=== PATIENT | female | born 1940 | race African-American/Black ===

== ENCOUNTER 2017-10-12 21:34 | Observation (INO) ==
[2017-10-12] MEDS ORDERED: Sodium Chlor 0.9% Inj 500 ML IV.SIG ONE (22:06)
--- NOTE | 2017-10-12 22:17 | ED ---
HPI General Chief complaint: Chest Pain Stated complaint: Chest pain Time Seen by Provider: 10/12/17 22:05 Source: patient Limitations: no limitations History of Present Illness HPI narrative: The patient is a 77 year old female who presents to the [facility] emergency department with a history of developing abdominal pain sitting and resting earlier this evening. She reports that she moved her bowels a few times with the onset of symptoms which seem to help with the abdominal pain, however then the pain moved up into her chest. She reports that the pain is in the midepigastric, lower chest area. She reports having associated shortness of breath. She reports that the pain is sharp in character. She reports that it is an 8 out of 10 in severity prior to arrival and then down to a 6 out of 10 in severity. She reports having associated nausea without vomiting. She reports having diaphoresis.On review of systems otherwise, the patient denies having any known recent fevers, cough, congestion, neck pain, diarrhea, urinary symptoms, or neurologic symptoms. Related Data Home Medications Medication Instructions Recorded Confirmed cholecalciferol (vitamin D3) 1,000 unit PO DAILY 10/13/17 10/13/17 [Vitamin D3] losartan 100 mg PO DAILY 10/13/17 10/13/17 multivitamin PO DAILY 10/13/17 oxybutynin chloride 5 mg DAILY 10/13/17 10/13/17 rosuvastatin 10 mg PO DAILY 10/13/17 10/13/17 Allergies Allergy/AdvReac Type Severity Reaction Status Date / Time No Known Allergies Allergy Verified 10/12/17 21:50 Review of Systems ROS Unobtainable All other systems reviewed negative except as stated in HPI [facility] Medical History Medical History Hypercholesteremia (Acute) Hypertension (Acute) Social History Social History Substance History: No History of Abuse Second Hand Smoke Exposure: No Smoking Status: Never smoker How Often Do You Have a Drink Containing Alcohol: Never Recent Travel in [facility] within the Last 8 Weeks: No Recent Out of Country Travel within the Last 8 Weeks: No Immunization History Tetanus Immunization: Unsure Hx Influenza Vaccine This Season: No Exam Const General: cooperative, no acute distress and well developed Nutritional Appearance: well nourished Orientation: alert, awake and oriented x3 HENMT Head: normocephalic and atraumatic Nose: no nasal discharge and no epistaxis Mouth: moist mucous membranes Eyes Sclera: normal sclerae Pupils: PERRL Neck Neck: trachea midline and no JVD Resp Effort & Inspection: no use of accessory muscles Auscultation: clear to auscultation bilaterally Cardio Rate: regular rate Rhythm: regular rhythm Heart Sounds: no murmurs GI Inspection: non-distended Palpation: soft, no hepatosplenomegaly and tender in the epigastrum; not in the LLQ, not in the RLQ, not in the LUQ, not in the RUQ, not at McBurney's point, Bernard's sign negative and with no rebound tenderness Auscultation: normal bowel sounds Skin General: dry skin (warm) Neuro General: alert, awake and oriented x3 Cranial Nerves: CN's II-XI intact bilaterally Speech: speech normal Motor: muscle tone normal throughout and no movement abnormalities noted Sensory Exam: no sensory deficits noted Extrem General: normal to inspection, no clubbing, no cyanosis and no edema Psych Mood: congruent mood Affect: normal affect Judgment: judgment good Course Initial Documented Vital Signs Temperature 99.4 F 10/12/17 21:46 Pulse Rate 90 10/12/17 21:46 Respiratory Rate 18 10/12/17 21:46 Blood Pressure 172/82 H 10/12/17 21:46 Pulse Oximetry 98 10/12/17 21:46 Last Documented Vital Signs Temperature 98.0 F 10/13/17 05:24 Pulse Rate 60 10/13/17 11:30 Respiratory Rate 18 10/13/17 11:30 Blood Pressure 127/60 10/13/17 11:30 Pulse Oximetry 98 10/13/17 11:30 Medical Decision Making MDM Narrative Medical decision making narrative: During the course of the patient's emergency department visit, the patient's history, examination, and differential diagnosis were reviewed with the patient. The patient was placed on a medical records manager with oximetry and frequent blood pressure monitoring. The patient had IV access obtained and blood work sent for analysis. The patient was initially provided Aspirin 324 mg p.o. 1, nitroglycerin sublingual 1, nitroglycerin 1 inch the chest wall, morphine 2 mg IV for pain, normal saline IV fluids. Laboratory studies revealed no acute abnormality except for a slightly elevated d-dimer, therefore CTA to rule out PE was ordered., initial set of cardiac enzymes were within normal limits, lipase within normal limits. Glucose was elevated at 186. Imaging studies revealed a CTA that was negative for pulmonary embolism, CT scan of the abdomen and pelvis showed no acute abnormality. The patient will be admitted to the chest pain center for rule out serial cardiac enzyme protocol followed by consideration of stress testing Differential Diagnosis Differential Diagnosis: Acute coronary syndrome, versus biliary colic, versus pancreatitis, versus acute cholecystitis Medical Records Medical records reviewed: Yes I reviewed the patient's medical records. Lab Data Lab results reviewed: Yes I reviewed the patient's lab results. Result diagrams: 10/12/17 20:35 10/12/17 20:35 Lab Results 10/12/17 10/12/17 10/12/17 Range/Units 20:35 20:35 20:35 WBC 8.8 (4.0-11.0) th/mm3 RBC 5.24 (4.00-5.30) mil/mm3 Hgb 12.1 (11.6-15.3) gm/dL Hct 37.3 (35.0-46.0) % MCV 71.2 L (80.0-100.0) fL MCH 23.1 L (27.0-34.0) pg MCHC 32.4 (32.0-36.0) % RDW 15.7 (11.6-17.2) % Plt Count 305 (150-450) th/mm3 MPV 8.4 (7.0-11.0) fL Neut % (Auto) 80.5 H (16.0-70.0) % Lymph % (Auto) 10.9 (9.0-44.0) % [place] % (Auto) 7.2 (0.0-8.0) % Eos % (Auto) 1.0 (0.0-4.0) % Baso % (Auto) 0.4 (0.0-2.0) % Neut # (Auto) 7.1 (1.8-7.7) th/mm3 Lymph # (Auto) 1.0 (1.0-4.8) th/mm3 [place] # (Auto) 0.6 (0.0-0.9) th/mm3 Eos # (Auto) 0.1 (0.0-0.4) th/mm3 Baso # (Auto) 0.0 (0.0-0.2) th/mm3 WBC Differential . Differential Comment Auto diff final PT 11.2 (9.8-11.6) sec INR 1.1 Ratio APTT 24.3 (24.3-30.1) sec D-Dimer Quant (PE/DVT) 0.81 H (0.00-0.50) mg/L FEU Sodium 145 (136-145) meq/L Potassium 3.8 (3.5-5.1) meq/L Chloride 108 H (98-107) meq/L Carbon Dioxide 26.3 (21.0-32.0) meq/L Anion Gap 11 (5-15) meq/L BUN 18 (7-18) mg/dL Creatinine 1.25 H (0.50-1.00) mg/dL Estimated GFR 51 L (>89) mL/min Random Glucose 186 H (74-106) mg/dL Calcium 8.7 (8.5-10.1) mg/dL Magnesium 1.9 (1.5-2.5) mg/dL Total Bilirubin 0.5 (0.2-1.0) mg/dL AST 71 H (15-37) U/L ALT 38 (10-53) U/L Alkaline Phosphatase 74 (45-117) U/L Total Creatine Kinase 140 (26-192) U/L CK-MB (CK-2) 0.8 (0.5-3.6) ng/mL Troponin I Less than 0.02 L (0.02-0.05) ng/mL Total Protein 7.1 (6.4-8.2) g/dL Albumin 4.1 (3.4-5.0) g/dL Lipase 82 (73-393) U/L 10/13/17 10/13/17 Range/Units 04:00 06:41 WBC (4.0-11.0) th/mm3 RBC (4.00-5.30) mil/mm3 Hgb (11.6-15.3) gm/dL Hct (35.0-46.0) % MCV (80.0-100.0) fL MCH (27.0-34.0) pg MCHC (32.0-36.0) % RDW (11.6-17.2) % Plt Count (150-450) th/mm3 MPV (7.0-11.0) fL Neut % (Auto) (16.0-70.0) % Lymph % (Auto) (9.0-44.0) % [place] % (Auto) (0.0-8.0) % Eos % (Auto) (0.0-4.0) % Baso % (Auto) (0.0-2.0) % Neut # (Auto) (1.8-7.7) th/mm3 Lymph # (Auto) (1.0-4.8) th/mm3 [place] # (Auto) (0.0-0.9) th/mm3 Eos # (Auto) (0.0-0.4) th/mm3 Baso # (Auto) (0.0-0.2) th/mm3 WBC Differential Differential Comment PT (9.8-11.6) sec INR Ratio APTT (24.3-30.1) sec D-Dimer Quant (PE/DVT) (0.00-0.50) mg/L FEU Sodium (136-145) meq/L Potassium (3.5-5.1) meq/L Chloride (98-107) meq/L Carbon Dioxide (21.0-32.0) meq/L Anion Gap (5-15) meq/L BUN (7-18) mg/dL Creatinine (0.50-1.00) mg/dL Estimated GFR (>89) mL/min Random Glucose (74-106) mg/dL Calcium (8.5-10.1) mg/dL Magnesium (1.5-2.5) mg/dL Total Bilirubin (0.2-1.0) mg/dL AST (15-37) U/L ALT (10-53) U/L Alkaline Phosphatase (45-117) U/L Total Creatine Kinase 128 121 (26-192) U/L CK-MB (CK-2) (0.5-3.6) ng/mL Troponin I Less than 0.02 L Less than 0.02 L (0.02-0.05) ng/mL Total Protein (6.4-8.2) g/dL Albumin (3.4-5.0) g/dL Lipase (73-393) U/L Imaging Data Radiologist's impression: Chest X-Ray 10/12/17 22:06 CONCLUSION: The lungs are clear. Abdomen/Pelvis CT 10/13/17 00:01 CONCLUSION: 1. No acute findings. Stable hepatic cysts and bilateral renal parapelvic cysts compared with 2016. No obstruction, free fluid or free air. Chest CTA 10/13/17 00:01 CONCLUSION: 1. Negative for pulmonary embolus. Stable 4 mm nodule left lower lobe. No acute findings. ECG Data Attestation: I personally reviewed and interpreted this ECG as follows: Interpretation: The patient had an EKG done on arrival that shows a sinus rhythm heart rate is 77, a [address] segment elevation. T waves are inverted in V1. Discharge Plan Discharge Disposition Patient Disposition: 01 Discharge Home Discharge Condition Condition: Stable Discharge Order Discharge Orders: Discharge Order (Routine); Ordered 10/13/17 Ordered By: El Richard Discharge Details Anticipated Discharge Date: 10/13/17 Physicians Team ED Provider: Tania Doyle Primary Care Provider: Nikole Dos Santos Attending Provider: Myron Dos Santos Status ED Status: Left Department Discharge Information Discharge Date/Time: 10/13/17 12:48
[2017-10-12] MEDS ORDERED: Morphine Sulfate Inj 2 MG/ML Vial IV.PUSH ONE (22:23)
[2017-10-12] MEDS ORDERED: Morphine Inj 4 MG/ML Vial IV.PUSH ONE (22:48)
--- NOTE | 2017-10-12 22:59 | XR ---
EXAM DATE: 10/12/2017 10:31 PM EDT AGE/SEX: 77 years / Female INDICATIONS: . Chest pain. CLINICAL DATA: This is the patient's initial encounter. Patient reports that signs and symptoms have been present for 1 day and indicates a pain score of 5/10. MEDICAL/SURGICAL HISTORY: . Renal calculi. Hypertension. Hysterectomy. COMPARISON: [facility] [place], 12/09[place]. . FINDINGS: A single AP view of the chest demonstrates the lungs to be symmetrically aerated without evidence of mass, infiltrate or effusion. Stable linear atelectasis left lower lung. The cardiomediastinal conto urs are unremarkable. Osseous structures are intact. CONCLUSION: The lungs are clear. Electronically signed by: Jose Brennan MD 10/12/2017 10:57 PM EDT
[2017-10-12 23:15] LABS: Baso % (Auto) 0.4 % (0.0-2.0); Eos # (Auto) 0.1 th/mm3 (0.0-0.4); Hematocrit 37.3 % (35.0-46.0); Hemoglobin 12.1 gm/dL (11.6-15.3); Lymph % (Auto) 10.9 % (9.0-44.0); Mean Corpuscular HGB Conc 32.4 % (32.0-36.0); Mean Corpuscular Hemoglobin 23.1 pg (27.0-34.0); Mean Corpuscular Volume 71.2 fL (80.0-100.0); Mean Platelet Volume 8.4 fL (7.0-11.0); Mono # (Auto) 0.6 th/mm3 (0.0-0.9); Mono % (Auto) 7.2 % (0.0-8.0); Neut # (Auto) 7.1 th/mm3 (1.8-7.7); Neut % (Auto) 80.5 % (16.0-70.0); Platelet Count 305 th/mm3 (150-450); Red Blood Count 5.24 mil/mm3 (4.00-5.30); Red Cell Distribution Width 15.7 % (11.6-17.2); White Blood Count 8.8 th/mm3 (4.0-11.0)
[2017-10-12 23:28] LABS: Alanine Aminotransferase 38 U/L (10-53); Albumin 4.1 g/dL (3.4-5.0); Anion Gap 11 meq/L (5-15); Aspartate Aminotransferase 71 U/L (15-37); Blood Urea Nitrogen 18 mg/dL (7-18); Calcium 8.7 mg/dL (8.5-10.1); Carbon Dioxide 26.3 meq/L (21.0-32.0); Chloride 108 meq/L (98-107); Glomerular Filtration Rate 51 mL/min (>89); Glucose,Random 186 mg/dL (74-106); Lipase 82 U/L (73-393); Magnesium 1.9 mg/dL (1.5-2.5); Potassium 3.8 meq/L (3.5-5.1); Sodium 145 meq/L (136-145)
[2017-10-12 23:29] LABS: Activated Partial Thrombo Time 24.3 sec (24.3-30.1); INR 1.1 Ratio; Prothrombin Time 11.2 sec (9.8-11.6)
[2017-10-12 23:32] LABS: Alkaline Phosphatase 74 U/L (45-117); Creatine Kinase 140 U/L (26-192); D-Dimer 0.81 mg/L FEU (0.00-0.50); Total Protein 7.1 g/dL (6.4-8.2)
[2017-10-12 23:45] LABS: Creatine Kinase MB 0.8 ng/mL (0.5-3.6)
--- NOTE | 2017-10-13 00:48 | CT ---
EXAM DATE: 10/13/2017 12:26 AM EDT AGE/SEX: 77 years / Female INDICATIONS: Epigastric pain. CLINICAL DATA: This is the patient's initial encounter. Patient reports that signs and symptoms have been present for 1 day and indicates a pain score of 7/10. MEDICAL/SURGICAL HISTORY: None. None. ORAL CONTRAST: No oral contrast ingested. RADIATION DOSE: 16.08 CTDI (mGy) COMPARISON: [facility] – [place], [place] ABDOMEN & PELVIS W/O CONTRAST, 12/09/2015. . TECHNIQUE: Multiple contiguous axial images were obtained through the abdomen and pelvis following b olus infusion of 72 ml Omnipaque 350 (iohexol) nonionic water-soluble contrast as a cumulative dose for multiple exams. No oral contrast ingested. Using automated exposure control and adjustment of t he mA and/or kV according to patient size, radiation dose was kept as low as reasonably achievable to obtain optimal diagnostic quality images. DICOM format image data is available electronically for r eview and comparison. FINDINGS: There is minimal basilar dependent atelectasis in the lungs. Multiple hepatic cysts. Spleen, adrenals and pancreas unremarkable. Bilateral renal parapelvic cysts are similar to November 2015. No pelvic masses or free fluid. No adenopathy. No acute bony abnormality. CONCLUSION: 1. No acute findings. Stable hepatic cysts and bilateral renal parapelvic cysts compared with 2016. No obstruction, free fluid or free air. Electronically signed by: Jony Narvaez MD 10/13/2017 12:47 AM EDT
--- NOTE | 2017-10-13 00:52 | CT ---
EXAM DATE: 10/13/2017 12:28 AM EDT AGE/SEX: 77 years / Female INDICATIONS: Chest pain; rule out pulmonary embolus. CLINICAL DATA: This is the patient's initial encounter. Patient reports that signs and symptoms have been present for 1 day and indicates a pain score of 6/10. MEDICAL/SURGICAL HISTORY: None. None. RADIATION DOSE: 8.95 CTDI (mGy) COMPARISON: [facility] – [place], [place] ABDOMEN & PELVIS W/O CONTRAST, 12/09/2015. . TECHNIQUE: Volumetric scanning was performed using a multi-row detector CT scanner during bolus infu zackary of 72 ml Omnipaque 350 (iohexol) nonionic water-soluble contrast as a cumulative dose for multi ple exams. The data was post processed with a variety of visualization algorithms including full volu me maximum intensity projection and sliding thin slab reformation. Using automated exposure control and adjustment of the mA and/or kV according to patient size, radiation dose was kept as low as reaso nably achievable to obtain optimal diagnostic quality images. DICOM format image data is available e lectronically for review and comparison. FINDINGS: No filling defects are identified within the pulmonary arteries to suggest pulmonary embolic disease. There is no lung consolidation. Small 4 mm nodule left lower lobe is stable since 2016. Minimal basi lar lung scarring and dependent atelectasis. There is no hilar, mediastinal or axillary adenopathy. No acute findings in the upper abdomen. Bilateral renal and hepatic cysts. CONCLUSION: 1. Negative for pulmonary embolus. Stable 4 mm nodule left lower lobe. No acute findings. Electronically signed by: Jony Narvaez MD 10/13/2017 12:51 AM EDT
[2017-10-13 03:37] VITALS: O2SAT 98
[2017-10-13 04:34] LABS: Creatine Kinase 128 U/L (26-192)
[2017-10-13 05:27] VITALS: TEMP 98
[2017-10-13 08:09] LABS: Creatine Kinase 121 U/L (26-192)
[2017-10-13 08:15] VITALS: RESP 18
--- NOTE | 2017-10-13 10:45 | P.HPCA ---
History of Present Illness Primary Care Physician: Nikole Dos Santos MD, R3 Chief Complaint: Chest pain History of Present Illness: This is a 77-year-old female history of hypertension, hyperlipidemia, and kidney stones the presents to ED with complaint of initially developing discomfort in the epigastric region and then radiated up into the chest. This began yesterday and less about 30 minutes but recurred a few times. She was short of breath with it. No nausea or diaphoresis. Denies history of CAD. Cannot recall any recent stress testing. Denies recent illness. Denies fevers or chills. Currently denies discomforts. - Diagnosis (1) Chest pain (2) Hypertension (3) Hyperlipidemia Inpatient Certification: I certify that the inpatient services were ordered in accordance with Medicare regulations governing the order. This includes certification that hospital inpatient services are reasonable and necessary and in the case of services not specified as inpatient-only under 42 CFR 419.22(n), that they are appropriately provided as inpatient services in accordance to with the 2-midnight benchmark under 43 CFR 412.3(e) Review of Systems General: Patient denies fevers, chills, and recent travel. HEENT: Patient denies headache, sore throat, difficulty swallowing. Cardiovascular: Has the chest discomfort as mentioned above. Denies sensation of heart beating rapidly or irregularly. No syncope. Denies diaphoresis. Respiratory: She was short of breath. Denies inspirational chest discomfort. Denies coughing wheezing or hemoptysis. GI: Had some abdominal discomfort and points to epigastric region and states that is where the discomfort originated but then radiated up into the chest. Patient denies nausea, vomiting, diarrhea, bloody stools. Musculoskeletal: Patient denies joint pain or edema. Denies calf pain or edema. Neurovascular: Patient denies numbness, tingling, weakness in extremities. Denies headache. Endocrine: Denies polyuria and polydipsia. Hematologic: Denies easy bruising. Skin: Denies rash or itching. PMFSH - History History Provided By: Patient - Medical History Medical History: Medical History (Last Updated 10/12/17 @ 21:49 by Moi Patrick RN) Hypercholesteremia Hypertension - Tobacco History Second Hand Smoke Exposure: No Smoking Status: Never smoker - Alcohol History How Often Do You Have a Drink Containing Alcohol: Never - Substance Use History Substance History: No History of Abuse - Travel History Recent Travel in the [place] Within the Last 8 Weeks: No Recent Travel Out of the Country Within the Last 8 Weeks: No - Immunization History Tetanus Immunization: Unsure Hx Influenza Vaccine This Season: No Medications and Allergies Active Medications: Active Medications Atorvastatin Calcium (Lipitor) 20 mg PO DAILY [facility] Last Admin: 10/13/17 10:36 Dose: 20 mg Losartan Potassium (Cozaar) 100 mg PO DAILY [facility] Last Admin: 10/13/17 10:35 Dose: 100 mg Sodium Chloride (Ns Flush) 2 ml IV.FLUSH UNSCH PRN PRN Reason: FLUSH AFTER USING IV ACCESS Sodium Chloride (Ns Flush) 2 ml IV.FLUSH BID [facility] Last Admin: 10/13/17 10:36 Dose: 2 ml Sodium Chloride (Ns Flush) 2 ml IV.FLUSH PRN PRN PRN Reason: FLUSH AFTER USING IV ACCESS Allergies Allergy/AdvReac Type Severity Reaction Status Date / Time No Known Allergies Allergy Verified 10/12/17 21:50 Home Medications Medication Instructions Recorded Confirmed Type cholecalciferol (vitamin D3) 1,000 unit PO DAILY 10/13/17 10/13/17 History [Vitamin D3] losartan 100 mg PO DAILY 10/13/17 10/13/17 History multivitamin PO DAILY 10/13/17 History oxybutynin chloride 5 mg DAILY 10/13/17 10/13/17 History rosuvastatin 10 mg PO DAILY 10/13/17 10/13/17 History Exam Vital signs: Vital Signs 10/12/17 21:46 10/12/17 21:59 10/12/17 23:38 Temperature 99.4 F Pulse Rate 90 83 Respiratory Rate 18 20 16 Blood Pressure 172/82 H 187/86 H Blood Pressure [Left Arm] Blood Pressure [Right Arm] Pulse Oximetry 98 97 10/12/17 23:49 10/12/17 23:51 10/12/17 23:54 Temperature Pulse Rate 72 Respiratory Rate 16 16 Blood Pressure 144/82 H Blood Pressure [Left Arm] 144/82 H Blood Pressure [Right Arm] 158/70 H Pulse Oximetry 97 10/13/17 03:34 10/13/17 05:24 10/13/17 07:30 Temperature 98.0 F Pulse Rate 69 66 57 L Respiratory Rate 16 16 18 Blood Pressure 145/68 H 173/79 H 152/67 H Blood Pressure [Left Arm] Blood Pressure [Right Arm] Pulse Oximetry 98 98 Intake & Output 10/12/17 10/13/17 10/13/17 18:59 06:59 18:59 Intake Total 500 / 500 Balance 500 / 500 Weight 77.111 kg Intake: IV 500 / 500 Narrative: GENERAL: This is a well-nourished, well-developed patient, in no apparent distress. Patient speaks in clear complete sentences. Patient is pleasant. HEENT: Head is atraumatic and normocephalic. Neck is supple without lymphadenopathy and trachea is midline. No JVD or carotid bruits. CARDIOVASCULAR: Regular rate and rhythm without murmurs, gallops, or rubs. RESPIRATORY: Clear to auscultation. Breath sounds equal bilaterally. No wheezes , rales, or rhonchi. Chest wall is nontender. No use of accessory muscles. GASTROINTESTINAL: Abdomen is nontender, nondistended. Abdomen soft. No obvious pulsatile mass or bruit. No CVA tenderness. Strong femoral pulses bilaterally. Normal bowel sounds in all quadrants. MUSCULOSKELETAL: Patient is moving upper and lower extremities freely. No calf tenderness or edema, no Homans sign. Strong pulses in upper and lower extremities. NEUROLOGICAL: Patient is alert and oriented. Cranial nerves 2-12 are grossly intact. No focal deficits and speech is clear. SKIN: No rash and turgor is normal. Results 10/12/17 20:35 10/12/17 20:35 Cardiac Enzymes 10/12/17 10/13/17 10/13/17 Range/Units 20:35 04:00 06:41 AST 71 H (15-37) U/L CK-MB (CK-2) 0.8 (0.5-3.6) ng/mL Troponin I Less than 0.02 L Less than 0.02 L Less than 0.02 L (0.02-0.05) ng/mL Coagulation 10/12/17 Range/Units 20:35 PT 11.2 (9.8-11.6) sec APTT 24.3 (24.3-30.1) sec CBC 10/12/17 Range/Units 20:35 WBC 8.8 (4.0-11.0) th/mm3 RBC 5.24 (4.00-5.30) mil/mm3 Hgb 12.1 (11.6-15.3) gm/dL Hct 37.3 (35.0-46.0) % Plt Count 305 (150-450) th/mm3 Neut # (Auto) 7.1 (1.8-7.7) th/mm3 Lymph # (Auto) 1.0 (1.0-4.8) th/mm3 [place] # (Auto) 0.6 (0.0-0.9) th/mm3 Eos # (Auto) 0.1 (0.0-0.4) th/mm3 Baso # (Auto) 0.0 (0.0-0.2) th/mm3 Comprehensive Metabolic Panel 10/12/17 Range/Units 20:35 Sodium 145 (136-145) meq/L Potassium 3.8 (3.5-5.1) meq/L Chloride 108 H (98-107) meq/L Carbon Dioxide 26.3 (21.0-32.0) meq/L BUN 18 (7-18) mg/dL Creatinine 1.25 H (0.50-1.00) mg/dL Calcium 8.7 (8.5-10.1) mg/dL AST 71 H (15-37) U/L ALT 38 (10-53) U/L Alkaline Phosphatase 74 (45-117) U/L Total Protein 7.1 (6.4-8.2) g/dL Albumin 4.1 (3.4-5.0) g/dL Intake and Output 10/12/17 10/13/17 10/13/17 22:59 06:59 14:59 Intake Total 500 / 500 Balance 500 / 500 Intake: IV 500 / 500 Other: Weight 77.111 kg EKG interpretations - EKG EKG shows: bradycardia (EKGs been sinus rhythm sinus bradycardia without significant ST segment depressions or elevations.), sinus rhythm Caprini VTE Risk Assessment Caprini VTE Risk Assessment: Moderate/High Risk (score >= 2) Caprini Risk Assessment Model: Point Value = 1 Point Value = 2 Point Value = 3 Point Value = 5 Age 41-60 Minor surgery BMI > 25 kg/m2 Swollen legs Varicose veins or History of unexplained or recurrent spontaneous Oral contraceptives or hormone replacement Sepsis (< 1 month) Serious lung disease, including pneumonia (< 1 month) Abnormal pulmonary function Acute myocardial infarction Congestive heart failure (< 1 month) History of inflammatory bowel disease Medical patient at bed rest Age 61-74 Arthroscopic surgery Major open surgery (> 45 min) Laparoscopic surgery (> 45 min) Malignancy Confined to bed (> 72 hours) Immobilizing plaster cast Central venous access Age >= 75 History of VTE Family history of VTE Factor V Leiden Prothrombin [id number] Lupus anticoagulant Anticardiolipin antibodies Elevated serum homocysteine Heparin-induced thrombocytopenia Other congenital or acquired thrombophilia Stroke (< 1 month) Elective arthroplasty Hip, pelvis, or leg fracture Acute spinal cord injury (< 1 month) Prophylaxis Regimen: Total Risk Factor Score Risk Level Prophylaxis Regimen 0-1 Low Early ambulation 2 Moderate Order ONE of the following: *Sequential Compression Device (SCD) *Heparin 5000 units SQ BID 3-4 Higher Order ONE of the following medications: *Heparin 5000 units SQ TID *Enoxaparin/Lovenox 40 mg SQ daily (WT < 150 kg, CrCl > 30 mL/min) *Enoxaparin/Lovenox 30 mg SQ daily (WT < 150 kg, CrCl > 10-29 mL/min) *Enoxaparin/Lovenox 30 mg SQ BID (WT < 150 kg, CrCl > 30 mL/min) AND/OR *Sequential Compression Device (SCD) 5 or more Highest Order ONE of the following medications: *Heparin 5000 units SQ TID (Preferred with Epidurals) *Enoxaparin/Lovenox 40 mg SQ daily (WT < 150 kg, CrCl > 30 mL/min) *Enoxaparin/Lovenox 30 mg SQ daily (WT < 150 kg, CrCl > 10-29 mL/min) *Enoxaparin/Lovenox 30 mg SQ BID (WT < 150 kg, CrCl > 30 mL/min) AND *Sequential Compression Device (SCD) Assessment and Plan - Assessment (1) Chest pain Code(s): R07.9 - Chest pain, unspecified Status: Acute (2) Hypertension Code(s): I10 - Essential (primary) hypertension Status: Acute (3) Hyperlipidemia Code(s): E78.5 - Hyperlipidemia, unspecified Status: Acute - Plan * Chest pain: Patient has had serial cardiac enzymes and EKGs for ruling out purposes. She was seen by Dr. Spears of cardiology in the chest pain center and will undergo a Dylon protocol ETT. Patient would likely be discharged home if her stress test is nonischemic with instructions to follow- up with PCP. Return to ED for interval issues. * Hypertension: Continue medication. * Hyperlipidemia: Continue medication. Patient is stable at this time. She is agreeable to this plan.
--- NOTE | 2017-10-13 11:37 | TR ---
Date Performed: 10/13/2017 Time Performed: 11:09:30 DOCTOR: Idalmis Spears DRUG LIST: CLINICAL HISTORY: REASON FOR TEST: REASON FOR ENDING: OBSERVATION: CONCLUSION: LAKESHIA PROTOCOL. NO CP. TEST STOPPED AFTER EXCEEDING GOAL HR SECONDARY TO SOB AND LEG FATIGUE.Maximum IP=202 % Max HR Achieved=88.0% Maximum PU=820/82 Total Exercise Time=5:30 COMMENTS: No ischemia
[2017-10-13 11:41] VITALS: BP 127/60; PULSE 60
--- NOTE | 2017-10-13 16:41 | ECG ---
Date Performed: 10/13/2017 Time Performed: 03:43:45 PTAGE: 77 years EKG: Sinus rhythm NORMAL ECG Since PREVIOUS TRACING , no significant change noted PREVIOUS TRACIN12/09/2015 12.26 DOCTOR: Idalmis Spears Interpretating Date/Time 10/13/2017 16:41:19
--- NOTE | 2017-10-13 16:41 | ECG ---
Date Performed: 10/13/2017 Time Performed: 07:49:54 PTAGE: 77 years EKG: SINUS BRADYCARDIA BORDERLINE ECG Since PREVIOUS TRACING , no significant change noted PREVIOUS TRACIN10/13/2017 03.43 DOCTOR: Idalmis Spears Interpretating Date/Time 10/13/2017 16:41:08
--- NOTE | 2017-10-13 16:43 | ECG ---
Date Performed: 10/12/2017 Time Performed: 22:12:42 PTAGE: 77 years EKG: Sinus rhythm NORMAL ECG artifact Since PREVIOUS TRACING , no significant change noted DOCTOR: Idalmis Spears Interpretating Date/Time 10/13/2017 16:42:44
== END 2017-10-13 12:57 | disposition home or self-care (01) ==
LOC: NEDA 21:34 → NEPE 21:34 → NEDH 21:34
PROVIDERS: ADMIT Internal Medicine Cardiovascular Disease; ATTEND Internal Medicine Cardiovascular Disease
DX: N94.89 Other specified conditions associated with female genital organs and menstrual cycle; R07.89 Other chest pain; E78.5 Hyperlipidemia, unspecified; R06.02 Shortness of breath; I10 Essential (primary) hypertension; K76.89 Other specified diseases of liver